=== PATIENT | male | born 1945 | race Caucasian/White ===

== ENCOUNTER 2017-10-25 14:13 | Outpatient (CLI) | payer MEDICARE, OTHER ==
--- NOTE | 2017-10-30 13:10 | XRAY Report ---
THREE VIEW RIGHT SHOULDER: 10/25/2017 CLINICAL INDICATION: Pain. Internal and external rotational views and a scapular Y view of the right shoulder demonstrate degenerative changes at the glenohumeral and acromioclavicular joint, with inferior acromial spurring. There is no evidence of acute fracture or dislocation. No radiopaque foreign body is seen in the soft tissues. IMPRESSION: Moderate degenerative changes. No evidence of fracture. TD: 10/25/2017 20:09 [facility]
== END 2017-10-25 14:14 | disposition home or self-care (01) ==
LOC: DI 14:13
PROVIDERS: ATTEND Family Medicine
DX: M19.011 Primary osteoarthritis, right shoulder (principal)

== ENCOUNTER 2017-11-13 12:50 | Outpatient (CLI) | payer MEDICARE, OTHER ==
--- NOTE | 2017-11-13 18:18 | MRI Report ---
EXAM: RIGHT SHOULDER MRI WITHOUT CONTRAST EXAM DATE: 11/13/2017 02:09 PM. CLINICAL HISTORY: Bilateral shoulder pain, chronic, no trauma. COMPARISON: None. TECHNIQUE: Multiplanar, multisequence T1-weighted and fluid-sensitive sequences of the shoulder witho ut contrast. Other: None. FINDINGS: Acromioclavicular Region: The acromion is Type II unipartite. Acromioclavicular joint is moderately o steoarthritic and there is a small acromioclavicular joint effusion. The coracoacromial and coracocla vicular ligaments are intact. Moderate amount of fluid is seen in the bursa. Glenohumeral Region: No subluxation. No effusion or loose bodies. Global articular cartilaginous thin sunitha of both sides of the glenohumeral joint. The glenohumeral ligaments and joint capsule are unremarkable. Bone Marrow: No fracture, marrow edema or bone lesions. Labrum: The labrum is unremarkable on this nonarthrographic study. Musculature/Rotator Cuff: Supraspinatus tendon shows bursal-sided partial-thickness tear involving ab out 50% of the tendon thickness. Abnormal thickening in the infraspinatus and subscapularis without a partial or full-thickness fluid-filled gaps. Additionally, there is some calcification at the anteri or distal subscapularis. Teres minor is normal. Some mild proximal edema at the musculotendinous junc tion of the supraspinatus and infraspinatus. Biceps Tendon: The long head of the biceps tendon and biceps juan are intact. Other: The subcutaneous tissues are unremarkable. IMPRESSION: 1. Type II unipartite undersurface osseous acromion shape. Acromioclavicular joint is moderately oste oarthritic, small acromioclavicular joint effusion. Moderate amount of fluid in the bursa. 2. Partial-thickness bursal-sided tear at the distal supraspinatus involves about 50% of the tendon t hickness. There is some edematous change at the musculotendinous junction at the infraspinatus and damian bscapularis portions of the rotator cuff, distal tendons are also thickened and show some increased T 2 signal. This is compatible with moderately severe tendinitis. Subscapularis also shows some calcifi cation anteriorly and distally indicative of chronic calcific rotator cuff tendinitis. 3. Labrum, capsular structures and long head of biceps appear unremarkable. [facility] MUSCULOSKELET[facility] RADIOLOGY SECTION Referring Provider Line: [phone] SITE ID: [id number]
--- NOTE | 2017-11-13 18:27 | MRI Report ---
EXAM: LEFT SHOULDER MRI WITHOUT CONTRAST EXAM DATE: 11/13/2017 02:09 PM. CLINICAL HISTORY: RUFINA SHOULDER PAIN CHRONIC NO TRAUMA. COMPARISON: None. TECHNIQUE: Multiplanar, multisequence T1-weighted and fluid-sensitive sequences of the shoulder witho ut contrast. Other: None. FINDINGS: Acromioclavicular Region: The acromion is Type II unipartite. AC joint is severely osteoarthritic, sm all AC joint effusion also noted. The coracoacromial and coracoclavicular ligaments are intact. Moder ate amount of bursal fluid is present. Glenohumeral Region: No subluxation. Small joint effusion, some debris also identified. The articular cartilage is unremarkable. The glenohumeral ligaments and joint capsule are unremarkable. Bone Marrow: No fracture, marrow edema or bone lesions. Labrum: Sub-labral hole seen anteriorly. No focal tears. Musculature/Rotator Cuff: Undersurface tear distal supraspinatus involves 50% of the tendon thickness and series 501 image 12. Remainder of the supraspinatus and infraspinatus portions of rotator cuff a lso are thickened and shows some increased T2 signal. Subscapularis shows lesser amounts of increased T2. No proximal muscular edema or fatty atrophy. Biceps Tendon: There is marked swelling and increased T2 signal in the intra-articular portion of sav g head of biceps tendon. Series 401 image 16, series 701 image 9. No focal fluid-filled gap or vertic al split. Other: The subcutaneous tissues are unremarkable. IMPRESSION: 1. Type II unipartite undersurface osseous acromion shape. AC joint is severely osteoarthritic with a small AC joint effusion as well. Moderate amount of bursal fluid is present. Small joint effusion se en in the glenohumeral region. Some debris also noted. 2. Benign sub-labral hole seen anteriorly, no labral tears. 3. Partial thickness undersurface distal supraspinatus tear involves 50% tendon thickness. Surroundin g tendinitis also seen in the supraspinatus and infraspinatus, lesser amount of involvement of the damian bscapularis. 4. Marked swelling and increased T2 signal in the intra-articular portion long head biceps tendon com patible with severe tendinitis of the long head of biceps. [facility] MUSCULOSKELETAL RADIOLOGY SECTION Referring Provider Line: [phone] SITE ID: [id number]
== END 2017-11-13 12:51 | disposition home or self-care (01) ==
LOC: DI 12:50
PROVIDERS: ATTEND Family Medicine
DX: M19.011 Primary osteoarthritis, right shoulder (principal); M19.012 Primary osteoarthritis, left shoulder; M25.412 Effusion, left shoulder; M25.411 Effusion, right shoulder; M75.101 Unspecified rotator cuff tear or rupture of right shoulder, not specified as traumatic; M75.102 Unspecified rotator cuff tear or rupture of left shoulder, not specified as traumatic

== ENCOUNTER 2022-02-08 13:21 | Outpatient (CLI) | payer MEDICARE, OTHER ==
--- NOTE | 2022-02-08 14:22 | XRAY Report ---
PROCEDURE: Foot 3 View LT INDICATIONS: LEFT FOOT PAIN TECHNIQUE: 3 views of the foot were acquired. COMPARISON: None FINDINGS: Prominent plantar calcaneal enthesophyte with thickening of the soft tissues adjacent to the plantar calcaneus. This can be seen in setting of plantar fasciitis. Severe first MTP osteophytic changes characterized by joint space narrowing and marginal sclerosis wi th subchondral sclerosis and cystic change. Mild to moderate osteoarthritic change at the first inter phalangeal joint and fifth MTP. No fracture or dislocation. No suspicious lytic or blastic osseous lesion. IMPRESSION: Prominent plantar calcaneal enthesophyte with adjacent soft tissue thickening. Correlate for plantar fasciitis. 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 Reviewed by: Gm Cooley MD on 02/08/2022 2:21 PM PDT Approved by: Gm Cooley MD on 02/08/2022 2:21 PM PDT Station ID: [id number]
== END 2022-02-08 13:22 | disposition home or self-care (01) ==
LOC: DI 13:21
PROVIDERS: ATTEND Podiatrist
DX: M77.32 Calcaneal spur, left foot (principal); M19.072 Primary osteoarthritis, left ankle and foot

== ENCOUNTER 2023-09-09 11:43 | Outpatient (CLI) | payer MEDICARE, OTHER ==
[2023-09-09 14:44] LABS: BASOPHILS % (AUTO) 0.7 %; EOSINOPHILS # (AUTO) 0.3 10^3/uL (0.0-0.7); EOSINOPHILS % (AUTO) 4.3 %; HCT - HEMATOCRIT 39.7 % (42.0-52.0); LYMPHOCYTES # (AUTO) 1.4 10^3/uL (1.5-3.5); LYMPHOCYTES % (AUTO) 22.6 %; MEAN CORPUSCULAR HEMOGLOBIN 32.9 pg (27.0-31.0); MEAN CORPUSCULAR HGB CONC 35.3 g/dL (32.0-36.0); MEAN CORPUSCULAR VOLUME 93.4 fL (80.0-94.0); MONOCYTES # (AUTO) 0.6 10^3/uL (0.0-1.0); MONOCYTES % (AUTO) 9.6 %; NEUTROPHILS # (AUTO) 3.8 10^3/uL (1.5-6.6); NEUTROPHILS % (AUTO) 62.6 %; PLT - PLATELET COUNT 216 10^3/uL (130-450); RED BLOOD COUNT 4.25 10^6/uL (4.70-6.10); RED CELL DISTRIBUTION WIDTH 12.1 % (12.0-15.0); WHITE BLOOD COUNT 6.1 x10^3/uL (4.8-10.8)
[2023-09-09 17:10] LABS: ALBUMIN/GLOBULIN RATIO 1.8 (1.0-2.2); BILIRUBIN,TOTAL 0.5 mg/dL (0.2-1.0); CALCIUM 9.1 mg/dL (8.5-10.3); CREATININE 0.9 mg/dL (0.6-1.3); POTASSIUM 3.9 mmol/L (3.5-4.5); TOTAL PROTEIN 6.2 g/dL (6.4-8.9)
[2023-09-09 17:24] LABS: THYROID STIMULATING HORMONE 1.56 uIU/mL (0.34-5.60)
[2023-09-09 22:09] LABS: ESTIMATED AVERAGE GLUCOSE 97 mg/dL (70-100)
== END 2023-09-09 11:44 | disposition home or self-care (01) ==
LOC: LAB.S 11:43
PROVIDERS: ATTEND Internal Medicine
DX: I10 Essential (primary) hypertension (principal); Z13.1 Encounter for screening for diabetes mellitus; Z13.29 Encounter for screening for other suspected endocrine disorder; K21.9 Gastro-esophageal reflux disease without esophagitis
CPT/HCPCS: 36415; 80053; 83036; 84443; 85025

== ENCOUNTER 2024-01-23 08:00 | Outpatient (CLI) | payer MEDICARE, OTHER ==
--- NOTE | 2024-01-23 13:06 | XRAY Report ---
PROCEDURE: Wrist 3+V RT INDICATIONS: RIGHT WRIST PAIN TECHNIQUE: 4 views of the wrist were acquired. COMPARISON: None. FINDINGS: Bones: No acute fractures. Subcortical cystic changes throughout the carpal bones suggesting degener ative change. Normal bone alignment. Soft tissues: There is dystrophic calcification around the wrist including triangular fibrocartilage , distal radial chondrocalcinosis and calcifications around the proximal carpal row structures. Moder ate peripheral arterial calcification. IMPRESSION: No visible displaced fracture. Chronic degenerative changes including moderate soft tissue calcification and subcortical cystic simmons ges. Reviewed by: Daria Salazar MD on 01/23/2024 1:04 PM PDT Approved by: Daria Salazar MD on 01/23/2024 1:04 PM PDT Station ID: [id number]
== END 2024-01-23 23:59 | disposition home or self-care (01) ==
LOC: DI.S 08:00
PROVIDERS: ATTEND Registered Nurse
DX: L94.2 Calcinosis cutis (principal); M85.68 Other cyst of bone, other site

== ENCOUNTER 2024-06-17 07:17 | Outpatient (CLI) | payer MEDICARE, OTHER ==
[2024-06-17 15:20] LABS: BASOPHILS # (AUTO) 0.1 10^3/uL (0.0-0.1); BASOPHILS % (AUTO) 1.1 %; EOSINOPHILS # (AUTO) 0.3 10^3/uL (0.0-0.7); EOSINOPHILS % (AUTO) 6.5 %; HCT - HEMATOCRIT 43.2 % (42.0-52.0); LYMPHOCYTES % (AUTO) 20.7 %; MEAN CORPUSCULAR HEMOGLOBIN 33.7 pg (27.0-31.0); MEAN CORPUSCULAR HGB CONC 34.7 g/dL (32.0-36.0); MEAN CORPUSCULAR VOLUME 97.1 fL (80.0-94.0); MONOCYTES # (AUTO) 0.4 10^3/uL (0.0-1.0); MONOCYTES % (AUTO) 8.8 %; NEUTROPHILS # (AUTO) 2.9 10^3/uL (1.5-6.6); NEUTROPHILS % (AUTO) 62.5 %; PLT - PLATELET COUNT 242 10^3/uL (130-450); RED BLOOD COUNT 4.45 10^6/uL (4.70-6.10); WHITE BLOOD COUNT 4.6 x10^3/uL (4.8-10.8)
[2024-06-17 16:18] LABS: ALBUMIN 4.2 g/dL (3.2-5.5); ALBUMIN/GLOBULIN RATIO 1.9 (1.0-2.2); ALKALINE PHOSPHATASE 75 IU/L (42-121); ALT ALANINE AMINOTRANSFERASE 23 IU/L (10-60); AST ASPARTATE AMINOTRANSFERASE 23 IU/L (10-42); BILIRUBIN,TOTAL 0.6 mg/dL (0.2-1.0); BUN - BLOOD UREA NITROGEN 18 mg/dL (6-20); CALCIUM 9.4 mg/dL (8.5-10.3); CARBON DIOXIDE - CO2 31 mmol/L (21-32); CHLORIDE 105 mmol/L (101-111); CHOL/HDL RATIO 3.2 (<5.0); CHOLESTEROL 168 mg/dL; CREATININE 0.8 mg/dL (0.6-1.3); GFR - MDRD 93 (>89); GLUCOSE 97 mg/dL (74-104); HDL CHOLESTEROL 53 mg/dL; LDL CHOLESTEROL,CALCULATED 92 mg/dL; LDL/HDL RATIO 1.7 (<3.6); SODIUM 139 mmol/L (135-145); TOTAL PROTEIN 6.4 g/dL (6.4-8.9); TRIGLYCERIDES 117 mg/dL; VLDL CHOLESTEROL 23 mg/dL
[2024-06-17 21:57] LABS: ESTIMATED AVERAGE GLUCOSE 100 mg/dL (70-100); HEMOGLOBIN A1c% 5.1 % (4.27-6.07)
== END 2024-06-17 07:18 | disposition home or self-care (01) ==
LOC: LAB.S 07:17
PROVIDERS: ATTEND Internal Medicine
DX: I10 Essential (primary) hypertension (principal); Z13.1 Encounter for screening for diabetes mellitus
CPT/HCPCS: 36415; 80053; 80061; 83036; 83721; 84153; 85025

== ENCOUNTER 2024-06-24 08:00 | Outpatient (CLI) | payer MEDICARE, OTHER ==
--- NOTE | 2024-06-24 22:18 | XRAY Report ---
PROCEDURE: Hip w/Pelvis 2-3V RT INDICATIONS: RIGHT GROIN PAIN TECHNIQUE: 2 views of the hip were acquired. COMPARISON: None. FINDINGS: Bones: No fractures or dislocations. No suspicious bony lesions. There is at least moderate superior joint space narrowing seen involving the right hip. There is asso ciated remodeling change, with subchondral sclerosis and osteophyte formation. Moderate left hip dege nerative change is seen. Note is made of age-appropriate degenerative change of the lower lumbar spine. Soft tissues: No suspicious soft tissue calcifications or masses. Atherosclerotic calcification is s een. Prostate seed implants can be seen. IMPRESSION: There is at least moderate right hip and moderate left hip degenerative change. Additional findings: Prostate seed implants Reviewed by: Maurizio Nino MD on 06/24/2024 9:17 PM [facility]EL[facility]ETH Approved by: Maurizio Nino MD on 06/24/2024 9:17 PM [facility]UNDO Station ID: [id number]
== END 2024-06-24 23:59 | disposition home or self-care (01) ==
LOC: DI.S 08:00
PROVIDERS: ATTEND Physician Assistant
DX: R10.31 Right lower quadrant pain (principal); M16.0 Bilateral primary osteoarthritis of hip; Z96.0 Presence of urogenital implants

== ENCOUNTER 2024-07-06 15:22 | Outpatient (CLI) | payer MEDICARE, OTHER ==
--- NOTE | 2024-07-06 16:52 | XRAY Report ---
PROCEDURE: Lumbar Spine 4V INDICATIONS: CHONDROCALCINOSIS, ENTHESOPATHY TECHNIQUE: 3 views of the lumbar spine were acquired. COMPARISON: None. FINDINGS: Surgical change: None. Bones: 5 [id number] vertebrae are present. There is mild levoscoliosis of lumbar spine with ape x at L3 level. Degenerative endplate changes, loss of disc height and bilateral facet arthrosis throu ghout lumbar spine is seen. 6 mm anterolisthesis of L5 on S1 is noted. 6 mm retrolisthesis of L1 on L 2 and 3 mm retrolisthesis of L2 on L3 is seen. No acute vertebral body compression fracture. Soft tissues: Overlying bowel gas pattern is normal. No suspicious soft tissue calcifications. IMPRESSION: Degenerative disc disease throughout lumbar spine with mild levoscoliosis and likely degenerative spo ndylolisthesis as described above. No acute vertebral body compression fracture. Reviewed by: Eladio Galeano MD on 07/06/2024 4:51 PM PDT Approved by: Eladio Galeano MD on 07/06/2024 4:51 PM PDT Station ID: [id number]
== END 2024-07-06 23:59 | disposition home or self-care (01) ==
LOC: DI.S 15:22
PROVIDERS: ATTEND Internal Medicine
DX: M77.9 Enthesopathy, unspecified (principal); M12.9 Arthropathy, unspecified; M11.20 Other chondrocalcinosis, unspecified site; M51.36 Other intervertebral disc degeneration, lumbar region

== ENCOUNTER 2024-07-18 16:27 | Outpatient (CLI) | payer MEDICARE, OTHER ==
--- NOTE | 2024-07-20 11:28 | MRI Report ---
PROCEDURE: Lumbar Spine WO INDICATIONS: LUMBOSACRAL RADICULOPATHY TECHNIQUE: Noncontrast sagittal T1 spin echo and T2 fast echo, sagittal STIR, axial T1 and T2 fast spin echo thr ough the lumbar spine. In cases with scoliosis, additional coronal T2 fast spin echo may be performe d. COMPARISON: Radiograph 07/06/2024 FINDINGS: Image quality: Diagnostic Alignment: Trace retrolisthesis of L1 on L2. Marrow: No acute fracture. Scattered Modic changes Cord: Cord terminates in normal position. Normal appearance of cauda equina nerve roots Soft tissues: No abdominal aortic aneurysm. Right posterior renal cyst is present. No paravertebral s oft tissue collections Specific levels: L1-L2: Posterior disc bulge and facet arthropathy. Posterior osteophyte. Mild to moderate central juju rowing affecting both subarticular recesses. Mild to moderate bilateral neural foraminal narrowing. L2-L3: Central disc protrusion. Moderate central narrowing affecting the left greater than right suba rticular recesses. Mild to moderate facet arthropathy. Mild to moderate bilateral neural foraminal na rrowing. Small annular fissure. L3-L4: Diffuse disc bulge. Small annular fissure. There are superimposed paracentral protrusions bila terally. Moderate central narrowing with subarticular recess stenoses bilaterally. Mild right neural foraminal narrowing. Ligamentum flavum hypertrophy. L4-L5: Diffuse disc bulge. Small central protrusion. Mild narrowing of the left subarticular recess. Left greater than right facet arthropathy. Mild left and right neural foraminal narrowing. L5-S1: Small posterior disc protrusion and diffuse disc bulge. Mild to moderate facet arthropathy. Mi ld to moderate left and mild right neural foraminal narrowing IMPRESSION: Mild and moderate areas of spondylosis with narrowing as described above Reviewed by: Miles Cramer MD on 07/20/2024 11:27 AM PDT Approved by: Miles Cramer MD on 07/20/2024 11:27 AM PDT Station ID: [id number]
== END 2024-07-18 16:28 | disposition home or self-care (01) ==
LOC: DI 16:27
PROVIDERS: ATTEND Internal Medicine
DX: M51.36 Other intervertebral disc degeneration, lumbar region (principal); M48.061 Spinal stenosis, lumbar region without neurogenic claudication; M47.816 Spondylosis without myelopathy or radiculopathy, lumbar region; M51.27 Other intervertebral disc displacement, lumbosacral region; M51.37 Other intervertebral disc degeneration, lumbosacral region; M48.07 Spinal stenosis, lumbosacral region; M47.817 Spondylosis without myelopathy or radiculopathy, lumbosacral region; M51.26 Other intervertebral disc displacement, lumbar region